=== PATIENT | female | born 1955 | race Caucasian/White ===

== ENCOUNTER → 2017-04-20 | Outpatient (REF) ==
[~2017-04-20] MED LIST: CEFTIN250 MG PO; NO HOME MEDICATIONS; NORCO 325 MG-7.1 TAB PO; PYRIDIUM 100MG100 MG PO; VICODIN 5/5001 UDTAB PO
== END ==
LOC: WSOH 09:00
DX: Z02.89 Encounter for other administrative examinations (principal)

== ENCOUNTER → 2017-06-10 | Outpatient (CLI) | payer OTHER | LOC: MC.RAD 13:40 | DX: Z12.31 Encounter for screening mammogram for malignant neoplasm of breast (principal) ==

== ENCOUNTER → 2017-06-14 | Outpatient (REF) | LOC: WSOH 10:00 | DX: Z02.89 Encounter for other administrative examinations (principal) ==

== ENCOUNTER → 2018-06-23 | Outpatient (CLI) | payer OTHER ==
[~2018-06-23] MED LIST changes: +CEFTIN500 MG PO; +FLEXERIL 1010 MG/TAB PO; +PERCOCET 325 MG1 TA2 PO
== END ==
LOC: MC.RAD 09:40
DX: Z12.31 Encounter for screening mammogram for malignant neoplasm of breast (principal)

== ENCOUNTER → 2019-09-22 | Outpatient (CLI) | payer OTHER | LOC: MC.RAD 06:55 | DX: Z12.31 Encounter for screening mammogram for malignant neoplasm of breast (principal) ==

== ENCOUNTER → 2020-10-16 | Outpatient (CLI) | payer MEDICARE | LOC: MC.RAD 10:59 | DX: Z12.31 Encounter for screening mammogram for malignant neoplasm of breast (principal) ==

== ENCOUNTER → 2022-06-11 | Outpatient (RCR) | payer MEDICARE, OTHER | END | disposition home or self-care (01) | LOC: WSOT | DX: S52.501D Unspecified fracture of the lower end of right radius, subsequent encounter for closed fracture with routine healing (principal); S52.502D Unspecified fracture of the lower end of left radius, subsequent encounter for closed fracture with routine healing ==

== ENCOUNTER 2022-11-07 12:45 | Outpatient (RCR) | payer MEDICARE, OTHER | END 2022-11-11 | disposition home or self-care (01) | LOC: WSOT | DX: S63.641D Sprain of metacarpophalangeal joint of right thumb, subsequent encounter (principal); X58.XXXD Exposure to other specified factors, subsequent encounter ==

== ENCOUNTER 2023-01-08 12:45 | Outpatient (RCR) | payer MEDICARE, OTHER | END 2023-01-09 | disposition home or self-care (01) | LOC: WSOT | DX: S63.641D Sprain of metacarpophalangeal joint of right thumb, subsequent encounter (principal); S52.501D Unspecified fracture of the lower end of right radius, subsequent encounter for closed fracture with routine healing; S52.502D Unspecified fracture of the lower end of left radius, subsequent encounter for closed fracture with routine healing; Z98.890 Other specified postprocedural states; X58.XXXD Exposure to other specified factors, subsequent encounter ==

== ENCOUNTER 2023-02-04 13:00 | Outpatient (RCR) | payer MEDICARE, OTHER | END 2023-02-08 | disposition home or self-care (01) | LOC: WSOT | DX: S52.501A Unspecified fracture of the lower end of right radius, initial encounter for closed fracture (principal); S63.641A Sprain of metacarpophalangeal joint of right thumb, initial encounter; X58.XXXA Exposure to other specified factors, initial encounter ==